=== PATIENT | male | born 1940 ===

== ENCOUNTER 2017-07-06 07:47 | Day surgery (SDC) | payer MEDICARE ==
[2017-07-06] MEDS ORDERED: NACL 0.9% 1000 ML 1,000 ML IV SCH (09:00)
[2017-07-06 09:12] VITALS: BP 149/73
[2017-07-06] MEDS ORDERED: NACL ONE (10:57)
--- NOTE | 2017-07-09 13:01 | Cat Scan Report ---
FINAL REPORT EXAM: CT ANGIO NECK HISTORY: bilat carotid stenosis TECHNIQUE: CT angiography of the neck performed. 100 cc Omnipaque 350 IV administered. Axial images and coronal and sagittal reformatted images were obtained. 3D angiographic reformatted images were also obtained. PRIORS: None. FINDINGS: There are atherosclerotic calcifications involving carotid bifurcation regions and carotid bulbs, left more than right. There is focal marked stenosis involving the proximal aspect of the left ICA. This is over 90 percent and involves 5 mm segment. There is mild narrowing of the distal common carotid artery, less than 50 percent. On the right side there is some mild stenosis of the proximal ICA, less than 50 percent. Bilateral vertebral arteries are patent without stenosis. IMPRESSION: There is greater than 90 percent stenosis involving proximal left ICA. Stenosis of the right ICA is less than 50 percent.
== END 2017-07-06 14:30 | disposition home or self-care (01) ==
LOC: CATHLABREC 07:47
PROVIDERS: ATTEND Surgery Vascular Surgery
DX: I65.23 Occlusion and stenosis of bilateral carotid arteries (principal)
CPT/HCPCS: 36415; 70498; 82565; 84520; 96360; 96361; J7030; Q9967